=== PATIENT | female | born 2000 | race Caucasian/White ===

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

== ENCOUNTER → 2021-05-08 | Outpatient (CLI) | payer MEDICAID ==
[2021-05-08 17:53] LABS: BASO # 0.02 K/mm3 (0.02-0.10); EOS # 0.06 K/mm3 (0.04-0.40); EOS % 1.2 % (0.1-4.0); HEMATOCRIT 41.8 % (35.0-45.0); HEMOGLOBIN 13.8 g/dL (12.0-15.0); LYMPH# 2.09 K/mm3 (1.20-3.40); MEAN CELL VOLUME 93 fl (78-95); MEAN CORPUSCULAR HEMOGLOBIN 31 pg (26-32); MEAN CORPUSCULAR HGB CONC 33 g/dL (33-37); MEAN PLATELET VOLUME 9.8 fl (7.4-10.4); MONO # 0.48 K/mm3 (0.10-0.60); NEU # 2.36 K/mm3 (1.40-6.50); PLATELET COUNT 254 K/mm3 (130-400); RED BLOOD COUNT 4.52 M/mm3 (4.10-5.30); RED CELL DISTRIBUTION WIDTH 12.1 % (11.5-14.5)
[2021-05-08 17:56] LABS: ALBUMIN 4.5 g/dL (3.5-5.0); POTASSIUM 4.2 mmol/L (3.5-5.1)
[2021-05-08 17:57] LABS: CALCIUM 9.6 mg/dL (8.3-10.5)
[2021-05-08 17:58] LABS: TOTAL PROTEIN 7.6 g/dL (6.4-8.3)
[2021-05-08 18:00] LABS: TOTAL BILIRUBIN 0.3 mg/dL (0.2-1.2)
[2021-05-08 18:14] LABS: URINE APPEARANCE HAZY; URINE BILIRUBIN NEGATIVE (NEGATIVE); URINE BLOOD 50 ery/uL (NEGATIVE); URINE COLOR YELLOW; URINE GLUCOSE NEGATIVE (NEGATIVE); URINE KETONE TRACE (NEGATIVE); URINE LEUKOCYTE ESTERASE NEGATIVE (NEGATIVE); URINE NITRATE NEGATIVE (NEGATIVE); URINE PROTEIN(semi-quant) TRACE (NEGATIVE); URINE UROBILINOGEN NORMAL (NORMAL); URINE WBC 0-1 /hpf (0-3)
[2021-05-08 18:15] LABS: URINE MUCUS PRESENT (NOT PRESENT)
== END ==
LOC: LAB 17:37
PROVIDERS: Nurse Practitioner Family
DX: M54.6 Pain in thoracic spine (principal); R73.09 Other abnormal glucose

== ENCOUNTER 2021-07-11 08:41 | Emergency (ER) | payer MEDICAID ==
[2021-07-11 08:49] VITALS: BP 116/75
[2021-07-11] MEDS ORDERED: ACETAMINOPHEN-H1 TA2 PO (08:50)
[2021-07-11] MEDS ORDERED: AMOXICILLIN 50500 MG (08:51)
[2021-07-11] MEDS ORDERED: CETIRIZINE HCL10 MG PO (08:51)
[2021-07-11 09:21] LABS: BASO # 0.03 K/mm3 (0.02-0.10); EOS % 1.3 % (0.1-4.0); HEMATOCRIT 39.5 % (35.0-45.0); HEMOGLOBIN 13.1 g/dL (12.0-15.0); LYMPH# 3.21 K/mm3 (1.20-3.40); MEAN CELL VOLUME 91 fl (78-95); MEAN CORPUSCULAR HEMOGLOBIN 30 pg (26-32); MEAN CORPUSCULAR HGB CONC 33 g/dL (33-37); MEAN PLATELET VOLUME 10.1 fl (7.4-10.4); MONO # 0.48 K/mm3 (0.10-0.60); NEU # 3.57 K/mm3 (1.40-6.50); PLATELET COUNT 257 K/mm3 (130-400); RED BLOOD COUNT 4.32 M/mm3 (4.10-5.30); RED CELL DISTRIBUTION WIDTH 12.4 % (11.5-14.5); WHITE BLOOD COUNT 7.4 K/mm3 (4.8-10.8)
[2021-07-11 09:25] LABS: POTASSIUM 3.7 mmol/L (3.5-5.1)
[2021-07-11 09:26] LABS: CALCIUM 9.4 mg/dL (8.3-10.5)
[2021-07-11 09:27] LABS: TOTAL PROTEIN 6.9 g/dL (6.4-8.3)
[2021-07-11 09:29] LABS: TOTAL BILIRUBIN 0.4 mg/dL (0.2-1.2)
[2021-07-11 09:59] LABS: PH-URINE 5.5 (5.0 - 8.0); URINE APPEARANCE HAZY; URINE COLOR YELLOW
[2021-07-11 10:00] LABS: URINE BILIRUBIN NEGATIVE (NEGATIVE); URINE BLOOD TRACE (NEGATIVE); URINE GLUCOSE NEGATIVE (NEGATIVE); URINE KETONE NEGATIVE (NEGATIVE); URINE LEUKOCYTE ESTERASE NEGATIVE (NEGATIVE); URINE MUCUS PRESENT (NOT PRESENT); URINE NITRATE NEGATIVE (NEGATIVE); URINE PROTEIN(semi-quant) NEGATIVE (NEGATIVE); URINE UROBILINOGEN NORMAL (NORMAL); URINE WBC 0-1 /hpf (0-3)
== END 2021-07-11 11:22 | disposition home or self-care (01) ==
LOC: ED 08:41
PROVIDERS: Nurse Practitioner
DX: R10.13 Epigastric pain (principal); F17.200 Nicotine dependence, unspecified, uncomplicated; Z28.310 Unvaccinated for COVID-19
CPT/HCPCS: Q9967

== ENCOUNTER → 2021-10-27 | Outpatient (CLI) | payer MEDICAID ==
[~2021-10-27] MED LIST changes: +ACETAMINOPHEN-H1 TA2 PO; +AMOXICILLIN 50500 MG; +CETIRIZINE HCL10 MG PO
== END ==
LOC: RAD 14:38
DX: R06.00 Dyspnea, unspecified (principal); U09.9 Post COVID-19 condition, unspecified

== ENCOUNTER → 2021-12-24 | Outpatient (CLI) | payer MEDICAID | LOC: RAD 13:50 | DX: N92.1 Excessive and frequent menstruation with irregular cycle (principal) ==